=== PATIENT | male | born 1950 | race Caucasian/White ===

== ENCOUNTER 2018-04-28 14:03 | Inpatient (IN) | payer MEDICARE ==
[2018-04-28 15:08] LABS: ABS Basophils 0 10^3/ul (0-0.2); ABS Eosinophils 0.1 10^3/ul (0-0.6); ABS Lymphocytes 1.4 10^3/ul (1.0-4.8); ABS Monocytes 0.6 10^3/ul (0-0.8); ABS Neutrophils 4.8 10^3/ul (1.5-7.7); ABS Nucleated RBC 0 10^3/ul; Eosinophil % 2.1 % (0-6); Hematocrit 37 % (42-52); Hemoglobin 12.9 g/dl (14.0-18.0); Lymphocyte % 19.6 % (25-47); Mean Corpuscular HGB Conc 35 g/dl (31-36); Mean Corpuscular Hemoglobin 30 pg (27-31); Mean Corpuscular Volume 87 fL (80-94); Mean Platelet Volume 8.1 um3 (7.4-10.4); Nucleated Red Blood Cells % 0; Platelet Count 163 10^3/ul (150-450); Red Blood Count 4.25 10^6/ul (4.00-5.40); Red Cell Distribution Width 14 % (10.5-15)
[2018-04-28 15:32] LABS: EGFR Non-African American 53.8 (>60)
--- NOTE | 2018-04-28 17:01 | ED ---
Lower Extremity - HPI Summary HPI Summary: This pt is a 67 y/o male [place] [facility] [place] Dr. Romeo c/o increased swelling of left leg for the past 2 weeks. He notes wound on left second toe that his noticed 3 weeks ago. Pt saw Dr. Ena Romeo for the first time 1 week ago at the wound clinic for his left second toe. Pt had a culture done that resulted negative. Pt notes he has had increased swelling and redness of his left leg. Last night he states he had chills but his temperature was 98.4F. Denies chest pain, SOB, nausea, vomiting, abd pain, headache, dizziness, urinary symptoms. Pt had completed a course of "clavamox" prior to seeing Dr. 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 Pt states he has been dressing his wound with bandaids every day. PMHx includes diabetes, neuropathy in LE. Pt is on Lantus and his last dose was this morning. He last ate breakfast this morning. Pt notes his glucose this morning was 212. He states eating and drinking sporadically. His PCP is Dr. Ajay Taveras. He is not on anticoagulants. Adverse reaction to Levaquin (reaction is nausea). - History of Current Complaint Chief Complaint: EDExtremityLower Stated Complaint: LT FOOT SWELLING Time Seen by Provider: 04/28/18 15:59 Hx Obtained From: Patient, Other: - Dr Romeo by phone Mechanism Of Injury: Other - no trauma Onset of Pain: Days Onset/Duration: Weeks Severity Initially: Moderate Severity Currently: Mild Pain Intensity: 3 Pain Scale Used: 0-10 Numeric Timing: Constant, Lasting Weeks Location: Is Discrete @ - left second toe Character Of Pain: Unable To Describe - minimal, pt has DM neuropathy Associated Signs And Symptoms: Positive: Swelling, Redness, Other - POS: chills. NEG: nasuea, vomiting, abd pain, headache, urinary symptoms. Negative: Fever, Dizziness, Abdominal Pain, Knee Pain Aggravating Factor(s): Nothing Alleviating Factor(s): Nothing Able to Bear Weight: Yes Related History: Other - DM neuropathy - Allergies/Home Medications Allergies/Adverse Reactions: Allergies Allergy/AdvReac Type Severity Reaction Status Date / Time levofloxacin Allergy GI Upset Verified 04/28/18 17:22 BEES Allergy Difficulty Uncoded 04/28/18 17:22 Breathing Home Medications: Home Medications Cholecalciferol (Vitamin D3) [Vitamin D3] 2,000 unit PO DAILY 04/28/18 [History Confirmed 04/28/18] Cyclosporine 0.05% OPHTH (NF) [Restasis 0.05% OPHTH] 1 drop BOTH EYES BID [History Confirmed 04/28/18] Turmeric Root Extract [Turmeric] 1,000 mg PO DAILY 04/28/18 [History Confirmed 04/28/18] Ubidecarenone [Coenzyme Q-10] 30 mg PO BEDTIME 04/28/18 [History Confirmed 04/28] prednisoLONE 1% OPHTH.SUSP* [Pred Forte 1%*] 1 drop .SEE ORDER QID 04/28/18 [ History Confirmed 04/28/18] PMH/Surg Hx/FS Hx/Imm Hx Previously Healthy: No Endocrine/Hematology History: Reports: Hx Diabetes, Hx Thyroid Disease, Other Endocrine/Hematological Disorders - Lyme disease Cardiovascular History: Reports: Hx Peripheral Vascular Disease - BLE venous staisis Denies: Hx Hypertension, Hx Pacemaker/ICD Respiratory History: Denies: Hx Asthma History: Denies: Hx Dialysis, Hx Renal Disease Sensory History: Reports: Hx Contacts or Glasses, Hx Hearing Aid - BILATERAL Opthamlomology History: Reports: Hx Contacts or Glasses Neurological History: Reports: Hx Peripheral Neuropathy, Other Neuro Impairments /Disorders - Vertigo, Psychiatric History: Reports: Hx Depression Denies: Hx Panic Disorder - Surgical History Surgery Procedure, Year, and Place: ACHILLES - Lt REPAIR ;. BILATERAL Saphenous VARICOSE VEIN - LASER ;. GALLBLADDER REMOVED ;. Tonsillectomy - Immunization History Date of Tetanus Vaccine: PT STATES UNSURE Infectious Disease History: No Infectious Disease History: Denies: Traveled Outside the [place] in Last 30 Days - Family History Family History: Father with polycythemia. Mother with no blood clots. - Social History Occupation: Employed Full-time - social science research assistant Alcohol Use: Daily Alcohol Amount: 1 glass wine/day Substance Use Type: Reports: None Smoking Status (MU): Former Smoker Type: Cigarettes Review of Systems Positive: Chills - yesterday. Negative: Fever Negative: Chest Pain Negative: Shortness Of Breath Negative: Abdominal Pain, Vomiting, Nausea Genitourinary: Negative Positive: no symptoms reported Positive: Edema - on left leg Skin: Other - left second toe wound Neurological: Other - NEG: dizziness Negative: Headache Psychological: Normal All Other Systems Reviewed And Are Negative: Yes Physical Exam - Summary Physical Exam Summary: Appearance: Well-appearing, moderate pain distress, well-nourished Skin: Warm, color reflects adequate perfusion, dry, left second toe wound ventral surface DIP (as below) Head: Normal Head/Face inspection, atraumatic Eyes: Conjunctiva clear ENT: Normal inspection Neck: Supple, no nodes, no JVD Respiratory: Lungs clear, normal breath sounds, no respiratory distress Cardio: RRR, No murmur, pulses normal, brisk capillary refill Abdomen: Soft, nontender Bowel sounds: Present Musculoskeletal: Strength Intact/ROM intact, no calf tenderness. LLE: 0.5 cm open area of the inferior surface of left second toe DIP. Fungal appearing toe nails. Diffuse edema from the foot to the knee. Brawny changes of anterior tibia bilaterally. Scattered excoriations bilaterally. Great dorsalis pedis pulses. Good posterior tibial pulses. Decreased sensation on bilateral lower extremity, left>right. Psychological: Normal Neuro: Alert, muscle tone normal, no focal deficit Triage Information Reviewed: Yes Vital Signs On Initial Exam: Initial Vitals Temp Pulse Resp BP Pulse Ox 97.0 F 81 20 147/91 98 04/28/18 14:07 04/28/18 14:07 04/28/18 14:07 04/28/18 14:07 04/28/18 14:07 Vital Signs Reviewed: Yes Diagnostics - Vital Signs Vital Signs Temp Pulse Resp BP Pulse Ox 04/28/18 14:07 97.0 F 81 20 147/91 98 - Laboratory Lab Results: Lab Results 04/28/18 04/28/18 04/28/18 Range/Units 14:59 14:59 14:59 WBC 7.0 (3.5-10.8) 10^3/ul RBC 4.25 (4.00-5.40) 10^6/ul Hgb 12.9 L (14.0-18.0) g/dl Hct 37 L (42-52) % MCV 87 (80-94) fL MCH 30 (27-31) pg MCHC 35 (31-36) g/dl RDW 14 (10.5-15) % Plt Count 163 (150-450) 10^3/ul MPV 8.1 (7.4-10.4) um3 Neut % (Auto) 69.2 (38-83) % Lymph % (Auto) 19.6 L (25-47) % Green % (Auto) 8.7 H (0-7) % Eos % (Auto) 2.1 (0-6) % Baso % (Auto) 0.4 (0-2) % Absolute Neuts (auto) 4.8 (1.5-7.7) 10^3/ul Absolute Lymphs (auto) 1.4 (1.0-4.8) 10^3/ul Absolute Monos (auto) 0.6 (0-0.8) 10^3/ul Absolute Eos (auto) 0.1 (0-0.6) 10^3/ul Absolute Basos (auto) 0 (0-0.2) 10^3/ul Absolute Nucleated RBC 0 10^3/ul Nucleated RBC % 0 ESR Pending Sodium 138 (135-145) mmol/L Potassium 4.1 (3.5-5.0) mmol/L Chloride 104 (101-111) mmol/L Carbon Dioxide 28 (22-32) mmol/L Anion Gap 6 (2-11) mmol/L BUN 31 H (6-24) mg/dL Creatinine 1.32 H (0.67-1.17) mg/dL Est GFR ( Amer) 65.1 (>60) Est GFR (Non-Af Amer) 53.8 (>60) BUN/Creatinine Ratio 23.5 H (8-20) Glucose 169 H (70-100) mg/dL Lactic Acid 0.7 (0.5-2.0) mmol/L Calcium 9.5 (8.6-10.3) mg/dL Total Bilirubin 1.00 (0.2-1.0) mg/dL AST 20 (13-39) U/L ALT 21 (7-52) U/L Alkaline Phosphatase 92 (34-104) U/L C-Reactive Protein 24.71 H (<8.01) mg/L Total Protein 7.1 (6.4-8.9) g/dL Albumin 4.1 (3.2-5.2) g/dL Globulin 3.0 (2-4) g/dL Albumin/Globulin Ratio 1.4 (1-3) Result Diagrams: 05/02/18 06:38 05/02/18 06:38 Lab Statement: Any lab studies that have been ordered have been reviewed, and results considered in the medical decision making process. - CT Left lower extremity CT CT Interpretation: Positive (See Comments) - IMPRESSION: 1. There is osteopenia with probable erosion of the tuft of the distal phalanx of the second digit with associated soft tissue irregularity suggestive of osteomyelitis. 2. 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 3. Subcutaneous edema. Dr. Hickman has reviewed this report. CT Interpretation Completed By: Radiologist - Additional Comments Diagnostic Additional Comments: Venous Doppler Study, Left lower extremity as read by radiologist IMPRESSION: No left lower extremity deep vein thrombosis. Dr. Hickman has reviewed this radiology report. Re-Evaluation - Re-Evaluation First Eval Re-Evaluation Time: 17:43 Comment: I reviewed CT results of osteomyelitis of left second toe with the pt. Second Eval Re-Evaluation Time: 18:20 Comment: I discussed admission plan with the pt. He understands and agrees. Lower Extremity Course/Dx - Course Course Of Treatment: Pt medications reviewed this visit. Allergies noted. Elevated blood pressure is noted. Pt is a 67 y/o male, with hx of diabetes and neuropathy, presenting to the ED referred by Dr. Romeo c/o increased swelling of left leg for the past 2 weeks and wound on left second toe worsening. US of left lower extremity is negative for DVT. CT of left lower extremity shows osteomyelitis of left second toe. Will consult orthopedics. I discussed pt care with Dr. Lindsay, orthopedist, who recommends admission to the hospitalist for AN, MRI of foot, broad spectrum antibiotics, and possible surgery. I discussed with Dr. Og, hospitalist, who accepted the pt for admission. - Diagnoses Differential Diagnosis/HQI/PQRI: Positive: Cellulitis, DVT, Osteomyelitis Provider Diagnoses: Acute osteomyelitis of toe of left foot - Physician Notifications Discussed Care Of Patient With: Avery Lindsay Time Discussed With Above Provider: 18:09 Instructed by Provider To: Other - I discussed pt care with Dr. Lindsay, orthopedist, who recommends admission to the hospitalist for AN, MRI of foot, broad spectrum antibiotics, and possible surgery. [18:17] I discussed with Dr. Og, hospitalist, who accepted the pt for admission. Discharge - Sign-Out/Discharge Documenting (check all that apply): Patient Departure - Admit to [facility] [place] - Discharge Plan Condition: Improved Disposition: ADMITTED TO [facility] - Billing Disposition and Condition Condition: IMPROVED Disposition: Admitted to [facility] - Attestation Statements Document Initiated by Haleyibe: Yes Documenting Scribe: Mandy Yañez Provider For Whom Sivane is Documenting (Include Credential): Dr. Mecca Hcikman MD Scribe Attestation: Mandy Ty scribed for Dr. Mecca Hickman MD on 05/05/18 at 1957. Scribe Documentation Reviewed: Yes Provider Attestation: The documentation as recorded by the Mandy prado accurately reflects the service I personally performed and the decisions made by me, Dr. Mecca Hickman MD
--- NOTE | 2018-04-28 17:05 | RAD ---
HISTORY: evaluate wound left second toe, DM,wound clinic pt COMPARISONS: April 23, 2018 TECHNIQUE: Multiple contiguous axial CT images are obtained of the left lower extremity , with coronal and sagittal multiplanar reconstructions, without intravenous contrast administration. FINDINGS: BONE DENSITY: Normal. BONES: There is osteopenia with probable erosion of the tuft of the distal phalanx of the second digit. JOINTS: There is advanced osteoarthritis of the first, second, and third tarsometatarsal articulations. MUSCULATURE: Unremarkable ALIGNMENT: There is no dislocation. SOFT TISSUES: There is subcutaneous edema of the midfoot and ankle. There is soft tissue irregularity of the distal second digit consistent with the history of wound. There is no loculated fluid collection to suggest abscess. OTHER FINDINGS: None. IMPRESSION: 1. THERE IS OSTEOPENIA WITH PROBABLE EROSION OF THE TUFT OF THE DISTAL PHALANX OF THE SECOND DIGIT WITH ASSOCIATED SOFT TISSUE IRREGULARITY SUGGESTIVE OF OSTEOMYELITIS. 2. ADVANCED OSTEOARTHRITIS OF THE MIDFOOT CONSISTENT WITH NEUROPATHIC JOINT. 3. SUBCUTANEOUS EDEMA.
--- NOTE | 2018-04-28 17:08 | RAD ---
HISTORY: swelling, wound left second toe COMPARISONS: None relevant TECHNIQUE: Multiple transverse and longitudinal ultrasound images were obtained of the left lower extremity from the level of the common femoral vein inferiorly through to the infrapopliteal veins using grayscale, color Doppler, and spectral Doppler imaging with and without compression and with augmentation. Comparison images were obtained of the contralateral common femoral vein. FINDINGS: VEINS: The venous system of the left lower extremity is compressible throughout its course, with normal flow on color Doppler imaging and normal response to augmentation on spectral Doppler imaging. SOFT TISSUES: There is diffuse subcutaneous edema along the calf. OTHER FINDINGS: None. IMPRESSION: NO LEFT LOWER EXTREMITY DEEP VEIN THROMBOSIS
[2018-04-28] MEDS ORDERED: NS 0.9% 1000 ML* 1,000 ML IV ONE (18:16)
[2018-04-28] MEDS ORDERED: Piperacillin/Tazobac ADVAN(*) 3.375 GM in NS 0.9% 100 ML* 100 ML IVPB ONE (18:19)
[2018-04-28] MEDS ORDERED: Al Hydrox/Mg Hydrox/Simet LIQ* 30 ML UDC PO PRN (18:52)
[2018-04-28] MEDS ORDERED: Vancomycin(*) 1,500 MG in NS 0.9% 250 ML* 250 ML IVPB ONE (19:23)
[2018-04-28] MEDS ORDERED: Vancomycin per Pharmacy* NOTE FOLLOW UP PRN (19:31)
[2018-04-28] MEDS ORDERED: Dextrose 50% Syringe 50 ML* 25 GM/50 ML SYRINGE IV PUSH PRN (19:36)
[2018-04-28] MEDS ORDERED: Zosyn per Pharmacy* NOTE FOLLOW UP SCH (20:00)
[2018-04-28] MEDS: Insulin LISPRO* 1 UNITS UNIT SUBCUT SCH (21:34)
[2018-04-28] MEDS: Heparin VIAL(*) 5000 UNITS/ML VIAL (FIVE THOUSAND) SUBCUT SCH (21:45)
--- NOTE | 2018-04-28 22:17 | RAD ---
EXAM: MR Left Lower Extremity Without Intravenous Contrast, Foot CLINICAL HISTORY: 67 years old, male; Pain; Toes; Left; Patient HX: Pt has a wound on his second left toe. Also has swelling and redness that radiates up to his knee. ? Spesis; Additional info: 2nd digit TECHNIQUE: Multiplanar magnetic resonance images of the left foot without intravenous contrast. COMPARISON: [place] L FOOT LEFT 3+ VWS 04/23/2018 1:14 PM FINDINGS: Bones/joints: Soft tissue wound distal tip of the second toe with some cellulitis. Difficult to assess for abscess without contrast. There is abnormal marrow signal in the distal phalanx of the toe, increased on STIR and slightly decreased on T1 suggesting osteomyelitis without bony destruction. 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 It is difficult to assess for possibility of active infection at this level. Soft tissues: Extensive infiltrative changes in the subcutaneous tissues most pronounced along the dorsum of the foot and around the ankle. Some of this may be passive edema and some may be cellulitis. IMPRESSION: 1. Soft tissue wound distal tip of the second toe with surrounding cellulitis. Difficult to assess for abscess without contrast. There is abnormal marrow signal in the distal phalanx of the toe, increased on STIR and slightly decreased on T1 suggesting osteomyelitis without bony destruction. 2. 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 It is difficult to assess for possibility of active infection at this level. 3. Extensive infiltrative changes in the subcutaneous tissues most pronounced along the dorsum of the foot and around the ankle. Some of this may be passive edema and some may be cellulitis.
--- NOTE | 2018-04-28 22:32 | HP ---
CC: Dr. Taveras * HISTORY AND PHYSICAL: DATE OF ADMISSION: 04/28/18 TIME OF ADMISSION: 7:30 p.m. CHIEF COMPLAINT: Sent from wound clinic. HISTORY OF PRESENT ILLNESS: This is a 67-year-old man with history of poorly controlled diabetes who has been following in the wound clinic one time for a left second digit ulcer. He was in the wound clinic today and there was concern for osteomyelitis, so he was sent to the emergency department. Mr. Palmer denies any pain in his feet and endorses peripheral neuropathy that he has had for many years. He did not notice the ulcer on his foot but his did and urged him to go see a physician. He denies any recent illness or fevers and has no complaints at this time. He is active, he golfs weekly and walks all the holes when he is golfing. He never gets chest pain or shortness of breath and never gets pain in his legs when he walks. PAST MEDICAL HISTORY: 1. Type 2 diabetes. 2. Depression. 3. Hypothyroidism. 4. History of cellulitis. PAST SURGICAL HISTORY: 1. Achillis tendon repair. 2. Cholecystectomy. HOME MEDICATIONS: 1. He takes Lantus 40 units in the evening and 35 units in the morning. 2. Duloxetine 30 mg b.i.d. Remainder of the med rec has not yet been completed and needs to be done in the morning. 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 He smoked for 10 years 3 packs per day and quit in 1973. REVIEW OF SYSTEMS: He denies fevers, chills, nausea, vomiting, constipation, diarrhea, headaches, orthopnea, weight gain or weight loss. Remainder of 14- point review of systems is negative. PHYSICAL EXAMINATION GENERAL: Alert, comfortable man in no acute distress. VITAL SIGNS: Temperature 97.0, heart rate 81, respiratory rate 20, pulse ox 98 % on room air, blood pressure 147/91. HEENT: Pupils equal, round, and reactive to light. No nystagmus. Oral mucosa is moist. NECK: No JVP. No cervical adenopathy. LUNGS: Clear bilaterally. CHEST: Regular rate and rhythm. No murmurs. PMI is nondisplaced. ABDOMEN: Obese, nontender, nondistended with no guarding or rebound. EXTREMITIES: Diffuse venous stasis changes are noted. A 1 cm ulcer is present on the plantar surface of the left second digit with no drainage or surrounding erythema. LABORATORY DATA: White blood cell 7.0, hemoglobin 12.9, platelets 163, 69% neutrophils. Sodium 138, potassium 4.1, chloride 104, bicarb 28, BUN 31, creatinine 1.31, glucose 169, lactic acid 0.7. CRP 24.7. Lower extremity CT: 1. There is osteopenia with probable erosion of the tuft of the distal phalanx of the second digit with associated soft tissue irregularity suggestive of osteomyelitis. 2. 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 3. Subcutaneous edema. ASSESSMENT AND PLAN: This is a 67-year-old male with poorly controlled diabetes who presented to the emergency department today as a referral from the wound clinic with a worsening left second digit ulcer. 1. Osteomyelitis of the left second digit: Dr. Hickman has spoken with Orthopedic surgery and they recommend ABIs and MRI which I am ordering now. I am starting him on vancomycin and Peptazol for osteomyelitis. He is not septic at this time. I suspect he will need surgical evaluation and I will discuss this with orthopedic surgery in the morning. 2. Poorly controlled type 2 diabetes: An A1c is pending. I am continuing on his home dose of Lantus at 40 units in the evening and 35 units in the morning. I am holding his pioglitazone. Of note, he does report some recent low blood sugars recently, but only when he is exercising. 3. Depression: Continue duloxetine. 4. Hypothyroidism: Continue home Synthroid. 5. Med rec: His current medications have not been reconciled and this needs to be done in the morning. 6. DVT prophylaxis: Heparin subcutaneously. [id number]/[facility] #: [id number] [facility]
[2018-04-29] MEDS: ZOSYN 3.375 GM Q8H per EXTENDED INFUSION IVPB SCH ×6 (00:05→17:24)
--- NOTE | 2018-04-29 04:15 | PN ---
Progress Note - Progress Note Date of Service: 04/29/18 Note: Due to persistently low glucose, evening lantus was held. Paged for glucose > 300. Will give 12 units and give his morning lantus now.
[2018-04-29] MEDS ORDERED: Insulin GLARGINE(*) 1 UNITS UNIT ONE (04:18)
[2018-04-29] MEDS: Insulin LISPRO* 1 UNITS UNIT SUBCUT SCH ×5 (04:19→21:45)
[2018-04-29] MEDS: Insulin GLARGINE(*) 1 UNITS UNIT SUBCUT SCH ×3 (04:20→17:24)
[2018-04-29] MEDS: Vancomycin(*) 1,000 MG in NS 0.9% 250 ML* 250 ML IVPB SCH ×3 (05:33→21:41)
[2018-04-29] MEDS: Heparin VIAL(*) 5000 UNITS/ML VIAL (FIVE THOUSAND) SUBCUT SCH ×3 (05:33→21:45)
[2018-04-29 07:00] LABS: ABS Basophils 0 10^3/ul (0-0.2); ABS Eosinophils 0.1 10^3/ul (0-0.6); ABS Lymphocytes 1.5 10^3/ul (1.0-4.8); ABS Monocytes 0.6 10^3/ul (0-0.8); ABS Nucleated RBC 0 10^3/ul; Eosinophil % 2.3 % (0-6); Hematocrit 36 % (42-52); Hemoglobin 12.8 g/dl (14.0-18.0); Lymphocyte % 24.4 % (25-47); Mean Corpuscular HGB Conc 35 g/dl (31-36); Mean Corpuscular Hemoglobin 31 pg (27-31); Mean Corpuscular Volume 88 fL (80-94); Mean Platelet Volume 8.6 um3 (7.4-10.4); Nucleated Red Blood Cells % 0.1; Platelet Count 156 10^3/ul (150-450); Red Blood Count 4.12 10^6/ul (4.00-5.40); Red Cell Distribution Width 14 % (10.5-15); White Blood Count 6.3 10^3/ul (3.5-10.8)
[2018-04-29 07:23] LABS: EGFR Non-African American 57.8 (>60)
--- NOTE | 2018-04-29 10:03 | PN ---
Subjective Date of Service: 04/29/18 Interval History: Hypoglycemia overnight--he was aware of it and felt weak. Evening lantus was held, then he ate, then BG was >300, so a reduced dose of lantus was given. He feels fine this morning. No pain, no fevers. Good appetite, no nausea, diarrhea, constipation, headache. Objective Active Medications: Acetaminophen (Tylenol Tab*) 650 mg PO Q4H PRN PRN Reason: FEVER/PAIN Al Hydrox/Mg Hydrox/Simethicone (Maalox Plus*) 30 ml PO Q6H PRN PRN Reason: INDIGESTION Dextrose (D50w Syringe 50 Ml*) 12.5 gm IV PUSH .FOR FS < 60 - SS PRN PRN Reason: FS < 60 Heparin Sodium (Porcine) (Heparin Vial(*)) 5,000 units SUBCUT Q8HR [facility] Last Admin: 04/29/18 05:33 Dose: 5,000 units Vancomycin HCl 1,000 mg/ (Sodium Chloride) 250 mls @ 166.667 mls/hr IVPB Q8H [facility]; Protocol Last Admin: 04/29/18 05:33 Dose: 166.667 mls/hr Piperacillin Sod/Tazobactam (Sod 3.375 gm/ Sodium Chloride) 100 mls @ 25 mls/ hr IVPB Q8H [facility] Last Admin: 04/29/18 07:41 Dose: 25 mls/hr Insulin Glargine (Lantus(*)) 40 units SUBCUT QPM [facility] Insulin Glargine (Lantus(*)) 35 units SUBCUT Q24H [facility] Last Admin: 04/29/18 06:47 Dose: Not Given Insulin Human Lispro (Humalog*) 0 units SUBCUT ACHS [facility]; Protocol Last Admin: 04/29/18 08:44 Dose: 2 unit Pharmacy Consult (Zosyn Per Pharmacy*) 1 note FOLLOW UP .ZOSYN PER PHARMACY [facility] Pharmacy Consult (Vancomycin Per Pharmacy*) 1 note FOLLOW UP . PRN PRN Reason: PER PROTOCOL Vital Signs - 8 hr 04/29/18 04/29/18 03:55 07:39 Temperature 98.2 F 98.1 F Pulse Rate 75 73 Respiratory 18 19 Rate Blood Pressure 152/81 144/82 (mmHg) O2 Sat by Pulse 96 97 Oximetry Oxygen Devices in Use Now: None Appearance: alert, reading the newspaper in bed, comfortable Eyes: No Scleral Icterus Ears/Nose/Mouth/Throat: NL Teeth, Lips, Gums Neck: NL Appearance and Movements; NL JVP Respiratory: Symmetrical Chest Expansion and Respiratory Effort, Clear to Auscultation Cardiovascular: NL Sounds; No Murmurs; No JVD, RRR Abdominal: NL Sounds; No Tenderness; No Distention Lymphatic: No Cervical Adenopathy Extremities: - - severe chronic venous stasis changes, varicose veins, left second digit with a 0.5cm ulceration, no drainage or surrounding erythema Result Diagrams: 04/29/18 06:38 04/29/18 06:38 Additional Lab and Data: Lab Results 04/28/18 04/28/18 04/28/18 Range/Units 14:59 14:59 14:59 WBC 7.0 (3.5-10.8) 10^3/ul RBC 4.25 (4.00-5.40) 10^6/ul Hgb 12.9 L (14.0-18.0) g/dl Hct 37 L (42-52) % MCV 87 (80-94) fL MCH 30 (27-31) pg MCHC 35 (31-36) g/dl RDW 14 (10.5-15) % Plt Count 163 (150-450) 10^3/ul MPV 8.1 (7.4-10.4) um3 Neut % (Auto) 69.2 (38-83) % Lymph % (Auto) 19.6 L (25-47) % [place] % (Auto) 8.7 H (0-7) % Eos % (Auto) 2.1 (0-6) % Baso % (Auto) 0.4 (0-2) % Absolute Neuts (auto) 4.8 (1.5-7.7) 10^3/ul Absolute Lymphs (auto) 1.4 (1.0-4.8) 10^3/ul Absolute Monos (auto) 0.6 (0-0.8) 10^3/ul Absolute Eos (auto) 0.1 (0-0.6) 10^3/ul Absolute Basos (auto) 0 (0-0.2) 10^3/ul Absolute Nucleated RBC 0 10^3/ul Nucleated RBC % 0 ESR Pending Sodium 138 (135-145) mmol/L Potassium 4.1 (3.5-5.0) mmol/L Chloride 104 (101-111) mmol/L Carbon Dioxide 28 (22-32) mmol/L Anion Gap 6 (2-11) mmol/L BUN 31 H (6-24) mg/dL Creatinine 1.32 H (0.67-1.17) mg/dL Est GFR ( Amer) 65.1 (>60) Est GFR (Non-Af Amer) 53.8 (>60) BUN/Creatinine Ratio 23.5 H (8-20) Glucose 169 H (70-100) mg/dL Lactic Acid 0.7 (0.5-2.0) mmol/L Calcium 9.5 (8.6-10.3) mg/dL Total Bilirubin 1.00 (0.2-1.0) mg/dL AST 20 (13-39) U/L ALT 21 (7-52) U/L Alkaline Phosphatase 92 (34-104) U/L C-Reactive Protein 24.71 H (<8.01) mg/L Total Protein 7.1 (6.4-8.9) g/dL Albumin 4.1 (3.2-5.2) g/dL Globulin 3.0 (2-4) g/dL Albumin/Globulin Ratio 1.4 (1-3) Assess/Plan/Problems-Billing Assessment: 67 year old man with history of poorly controlled diabetes x 20 years presented from the wound clinic with a worsening left 2nd digit ulcer, found to have osteomyelitis - Patient Problems (1) Osteomyelitis Current Visit: Yes Status: Acute Code(s): M86.9 - OSTEOMYELITIS, UNSPECIFIED SNOMED Code(s): 68709889 Comment: seen on CT, confirmed with MRI repeat ABIs today no evidence of sepsis suspect polymicrobial infection--treating with vanc and pip/tazo he declines an ID consult he has a good understanding of the pathogenesis of osteomyelitis and does not want to be on antibiotics for long periods of time and prefers amputation ortho following; he has good functional capacity--will do formal risk strat when OR date is scheduled (2) CKD stage 2 due to type 2 diabetes mellitus Current Visit: No Status: Acute Code(s): E11.22 - TYPE 2 DIABETES MELLITUS W DIABETIC CHRONIC KIDNEY DISEASE; N18.2 - CHRONIC KIDNEY DISEASE, STAGE 2 (MILD ) SNOMED Code(s): 976769648254 Comment: creat at baseline (3) DVT prophylaxis Current Visit: No Status: Acute Priority: Medium Code(s): FFE5614 - SNOMED Code(s): 455151881 Comment: heparin sc (4) Hypothyroidism (acquired) Current Visit: No Status: Acute Code(s): E03.9 - HYPOTHYROIDISM, UNSPECIFIED SNOMED Code(s): 399430247 Comment: cont Levothyroxine (5) DM type 2 (diabetes mellitus, type 2) Current Visit: No Status: Chronic Priority: Medium Comment: I received a med rec from dl and will update his orders hypoglycemia last night likely from having taken his am lantus and not eating all day (6) Depression Current Visit: Yes Status: Acute Code(s): F32.9 - MAJOR DEPRESSIVE DISORDER , SINGLE EPISODE, UNSPECIFIED SNOMED Code(s): 69776200 Comment: continue duloxetine and bupropion
--- NOTE | 2018-04-29 10:43 | RAD ---
INDICATION: Left foot ulcer. COMPARISON: Comparison is made with a prior study from February 01, 2017. TECHNIQUE: Bilateral ankle brachial indices were measured and Doppler tracings were obtained at the ankle of the dorsalis pedis and posterior tibial arteries. FINDINGS: The ankle brachial index on the right was 1.23 and on the left was 1.20. The ankle brachial indices on the prior study were 1.13 and 1.17 respectively. There is triphasic flow within the right posterior tibial artery and triphasic flow within the right dorsalis pedis artery. There is triphasic flow within the left posterior tibial artery and triphasic flow within the left dorsalis pedis artery. The toe brachial index was 0.79 on the right and 0.75 on the left. IMPRESSION: NORMAL ANKLE BRACHIAL INDICES AND TRIPHASIC FLOW AT BOTH ANKLES.
--- NOTE | 2018-04-29 16:49 | CONSULT ---
Consult Consult: - HPI Summary HPI Summary: This pt is a 67 y/o male seen on the floor today lying in bed. Pt presented to the ER with increased swelling of left leg for the past 2 months. He notes wound on left second toe that his noticed 1 month ago. Pt saw Dr. Ena Romeo for the first time 1 week ago at the wound clinic for his left second toe. Pt had a culture done that resulted negative. Pt notes he has had increased swelling and redness of his left leg. Last night he states he had chills but his temperature was 98.4F. Denies chest pain, SOB, nausea, vomiting, abd pain, headache, dizziness, urinary symptoms. Pt states he has been dressing his wound with bandaids every day. PMHx includes diabetes, neuropathy in LE. Pt is on Lantus and his last dose was this morning. He last ate breakfast this morning. Pt notes his glucose this morning was 212. He states eating and drinking sporadically. His PCP is Dr. Ajay Taveras. He is not on anticoagulants. Adverse reaction to Levaquin (reaction is nausea). Allergies Allergy/AdvReac Type Severity Reaction Status Date / Time levofloxacin Allergy GI Upset Verified 04/28/18 17:22 BEES Allergy Difficulty Uncoded 04/28/18 17:22 Breathing PMHx Endocrine/Hematology History: Reports: Hx Diabetes, Hx Thyroid Disease, Other Endocrine/Hematological Disorders - Lyme disease Cardiovascular History: Reports: Hx Peripheral Vascular Disease - BLE venous staisis Denies: Hx Hypertension, Hx Pacemaker/ICD Respiratory History: Denies: Hx Asthma History: Denies: Hx Dialysis, Hx Renal Disease Sensory History: Reports: Hx Contacts or Glasses, Hx Hearing Aid - BILATERAL Opthamlomology History: Reports: Hx Contacts or Glasses Neurological History: Reports: Other Neuro Impairments/Disorders - Virtigo Psychiatric History: Reports: Hx Depression Denies: Hx Panic Disorder PSHx ACHILLES - Lt REPAIR BILATERAL Saphenous VARICOSE VEIN - LASER GALLBLADDER REMOVED Tonsillectomy Family History: Father with polycythemia. Mother with no blood clots. Social Hx Alcohol Use: Daily Alcohol Amount: 1 glass wine/day Substance Use Type: Reports: None Smoking Status (MU): Former Smoker Type: Cigarettes ROS: Positive: Chills - yesterday. Negative: Fever Negative: Chest Pain Negative: Shortness Of Breath Negative: Abdominal Pain, Vomiting, Nausea Genitourinary: Negative Positive: no symptoms reported Positive: Edema - on left leg Skin: Other - left second toe wound Neurological: Other - NEG: dizziness Negative: Headache All Other Systems Reviewed And Are Negative: Yes Physical Exam: Vital Signs Temp 98.0 F 04/29/18 11:31 Pulse 74 04/29/18 11:31 Resp 16 04/29/18 11:31 BP 132/71 04/29/18 11:31 Pulse Ox 97 04/29/18 11:31 Intake & Output 04/28/18 04/29/18 04/29/18 18:59 06:59 18:59 Intake Total 1760 1010 Balance 1760 1010 Weight 300 lb 304 lb Intake: IV Fluids 1040 NS (0.9%) 1040 IVPB 430 ABX - VANCOMYCIN 285 ABX - ZOSYN 145 Oral 290 1010 Other: # Bowel Movements 0 2 # Voids 0 5 Appearance: Well-appearing, moderate pain distress, well-nourished Skin: Warm, color reflects adequate perfusion, dry Head: Normal Head/Face inspection, atraumatic Eyes: Conjunctiva clear ENT: Normal inspection Neck: Supple, no nodes, no JVD Respiratory: Lungs clear, normal breath sounds, no respiratory distress Cardio: RRR, No murmur, pulses normal, brisk capillary refill Abdomen: Soft, nontender Bowel sounds: Present Musculoskeletal: Inspection of the lower extremity reveals severe discoloration of the bilateral lower extremities. There is also a circular wound present on the 2nd digit of the left foot at the distal tip. Palpation reveals 2+ pitting edema. Strength Intact/ROM intact, no calf tenderness. Fungal appearing toe nails. Scattered excoriations bilaterally. 2+ dorsalis pedis pulses. 2+ posterior tibial pulses. Decreased sensation on bilateral lower extremity, left> right. Psychological: Normal Neuro: Alert, muscle tone normal, no focal deficit Imaging: Left lower extremity CT CT Interpretation: - 1. There is osteopenia with probable erosion of the tuft of the distal phalanx of the second digit with associated soft tissue irregularity suggestive of osteomyelitis. 2. 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 3. Subcutaneous edema. Dr. Hickman has reviewed this report. CT Interpretation Completed By: Radiologist Assessment: Left 2nd digit distal phalanx osteomyelitis Plan: 1. Discussed the options of non operative abx vs operative amputation of the 2nd distal phalanx. Pt expressed interest in surgical intervention. 2. ABIs to be obtained 3. Pt refused consult with Dr. Nickerson of ID for further abx management. Dr. Webster to see the pt in the am and discuss surgery and abx management.
[2018-04-29] MEDS: Ketorolac 0.5% OPHTH (NF) 0.5 % 5 ML BTL BOTH EYES SCH ×2 (17:25→21:45)
[2018-04-29] MEDS: prednisoLONE 1% OPHTH.SUSP* 5 ML OPHTH.SUSP SCH ×2 (17:25→21:59)
[2018-04-29] MEDS ORDERED: prednisoLONE 1% OPHTH.SUSP* 5 ML OPHTH.SUSP LEFT EYE SCH (21:42)
[2018-04-29] MEDS: prednisoLONE 1% OPHTH.SUSP* 5 ML OPHTH.SUSP LEFT EYE SCH (23:41)
[2018-04-30] MEDS: ZOSYN 3.375 GM Q8H per EXTENDED INFUSION IVPB SCH ×6 (00:20→17:31)
[2018-04-30] MEDS: Vancomycin(*) 1,000 MG in NS 0.9% 250 ML* 250 ML IVPB SCH ×3 (05:32→21:25)
[2018-04-30] MEDS: Heparin VIAL(*) 5000 UNITS/ML VIAL (FIVE THOUSAND) SUBCUT SCH ×3 (05:32→21:17)
[2018-04-30] MEDS ORDERED: Levothyroxine TAB* 100 MCG TAB PO SCH (06:00)
[2018-04-30] MEDS: Ketorolac 0.5% OPHTH (NF) 0.5 % 5 ML BTL BOTH EYES SCH ×4 (07:39→21:16)
[2018-04-30] MEDS: Insulin LISPRO* 1 UNITS UNIT SUBCUT SCH ×4 (07:49→21:24)
[2018-04-30] MEDS: prednisoLONE 1% OPHTH.SUSP* 5 ML OPHTH.SUSP LEFT EYE SCH ×4 (08:20→21:17)
[2018-04-30] MEDS: BuPROPion XL* 150 MG TAB.XL PO SCH (08:20)
[2018-04-30] MEDS: Insulin GLARGINE(*) 1 UNITS UNIT SUBCUT SCH ×2 (08:21→17:31)
--- NOTE | 2018-04-30 10:27 | CONSULT ---
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 He reports about one month of worsening ulcer, swelling and erythema at the left second toe. He does not recall a specific injury, but does have dense neuropathy from diabetes. He is admitted to the hospital and CT scan and MRI did show osteomyelitis, so I was consulted. He reports he has had generalized swelling in the foot for a couple of months. No pain. 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 This was treated by Dr. Pedroza. Review of Systems: Negative for fever, recent visual changes, difficulty swallowing, chest pain, shortness of breath, abdominal pain, hematuria, easy bruising, diffuse weakness or lack of coordination, and diffuse rash. Positive for neck and back pain, previous fracture, peripheral neuropathy, seasonal allergies, depression. PMH: Type 2 diabetes with peripheral neuropathy, Charcot neuroarthropathy of the foot, Thyroid problems, depression PSH: cholecystectomy, Achilles rupture repair, saphenous vein ablation Medications: Lantus, duloxetine, levothyroxin Allergies:levofloxacin SH:. He is a facilities maintenance supervisor. No smoking. 7-10 alcoholic drink per week. FH: Heart disease, thrombocytopenia. Physical Examination: Constitutional: General appearance is healthy and non-septic in no acute distress. Temp Pulse Resp BP Pulse Ox 97.7 F 75 16 142/80 98 04/30/18 07:15 04/30/18 07:15 04/30/18 07:15 04/30/18 07:15 04/30/18 07:15 Cardiovascular: Pulse examination demonstrates positive pedal pulses with brisk capillary refill. There are no varicosities. Heart with a regular rate and rhythm. Lung sounds clear bilaterally. Abdomen: Soft and nontender Lymphatic: No lymphadenopathy appreciated. Skin: Bilateral upper and lower extremity examination demonstrates no ulcerative lesions aside from those of the involved extremity detailed below, if present. Psychiatric / Neurological: Appropriate affect. Alert and oriented to person, place and time. There is no significant abnormality in coordination appreciated. Normoreflexive deep tendon reflex of the affected extremity. Musculoskeletal: Bilateral upper extremities and contralateral lower extremity show full range of motion with no evidence of instability and no tenderness with palpation and 5 /5 strength. There is no gross deformity. There is 5/5 motor strength and impaired light touch sensation. He has chronic venous stasis changes and swelling of his bilateral lower extremities The left foot is swollen, but not erythematous or tender. 0-30 ankle ROM, stable. He has swelling and very mild erythema of the left second toe. There is a 0.8 cm diameter ulcer on the tip of the toe. His bandage has a little bit of purulent drainage on it, but there is no active drainage on exam. Imaging: X-rays were obtained, and independently interpreted and show evidence of midfoot Charcot neuroarthropathy. His MRI and CT scan are consistent with distal phalanx osteomyelitis of the left second toe. ABIs were within normal limits. Labs: WBC 6.3 HCT 36 Platelets 156 Cr 1.24 ESR 36 CRP 24.7 Impression and Plan: Left second toe ulcer, infection, and distal phalanx osteomyelitis. He does also have Charcot neuroarthropathy in the midfoot. We discussed both nonoperative and operative treatment options at length. We discussed the risks/benefits and pros/cons of these options. We did discuss trying to salvage the toe. He was very adamant that he would prefer a second toe amputation to give him the best chance at clearing infection and not having a prolonged course. After this discussion, we came to the decision that we would move forward with surgery. The specific plan will be for A partial left second toe amputation tomorrow. For now, Infectious Disease consult and antibiotics as guided by Infectious Diseases, daily dressing changes. NPO at midnight for OR tomorrow. Appreciate medical clearance. I recommend chemical and mechanical DVT prophylaxis. Edwin Webster MD
[2018-04-30] MEDS: Levothyroxine TAB* 100 MCG TAB PO SCH (12:03)
--- NOTE | 2018-04-30 12:24 | PN ---
Subjective Date of Service: 04/30/18 Interval History: Mr. Palmer reports feeling well this morning. He has been up ambulating independently. Denies pain. He is aware of plan for amputation tomorrow and is in agreement. He is open to an ID consult, though he states he will not necessarily follow the recommendations. Good appetite. No N/V/D, but he does report flatus. Denies CP, SOB. Family History: Unchanged from Admission Social History: Unchanged from Admission Past Medical History: Unchanged from Admission Objective Active Medications: Acetaminophen (Tylenol Tab*) 650 mg PO Q4H PRN Al Hydrox/Mg Hydrox/Simethicone (Maalox Plus*) 30 ml PO Q6H PRN Bupropion HCl (Wellbutrin Xl *) 150 mg PO DAILY [facility] Dextrose (D50w Syringe 50 Ml*) 12.5 gm IV PUSH .FOR FS < 60 - SS PRN Famotidine (Pepcid Iv*) 20 mg IV ONCE ONE Heparin Sodium (Porcine) (Heparin Vial(*)) 5,000 units SUBCUT Q8HR [facility] Vancomycin HCl 1,000 mg/ (Sodium Chloride) 250 mls @ 166.667 mls/hr IVPB Q8H [facility]; Protocol Piperacillin Sod/Tazobactam (Sod 3.375 gm/ Sodium Chloride) 100 mls @ 25 mls/ hr IVPB Q8H [facility] Insulin Glargine (Lantus(*)) 40 units SUBCUT QPM [facility] Insulin Glargine (Lantus(*)) 35 units SUBCUT Q24H [facility] Insulin Human Lispro (Humalog*) 0 units SUBCUT ACHS [facility]; Protocol Ketorolac Tromethamine (Ketorolac 0.5% Ophth (Nf)) 1 drop BOTH EYES QID [facility] Levothyroxine Sodium (Synthroid Tab*) 200 mcg PO 0600 [facility] Prednisolone Acetate (Pred Forte 1%*) 1 drop LEFT EYE QID [facility] Vital Signs - 8 hr 04/30/18 07:15 Temperature 97.7 F Pulse Rate 75 Respiratory 16 Rate Blood Pressure 142/80 (mmHg) O2 Sat by Pulse 98 Oximetry Oxygen Devices in Use Now: None Appearance: Overweight male sitting in bed in no acute distress. Eyes: No Scleral Icterus, PERRLA Ears/Nose/Mouth/Throat: NL Teeth, Lips, Gums, Mucous Membranes Moist Neck: NL Appearance and Movements; NL JVP Respiratory: Symmetrical Chest Expansion and Respiratory Effort, Clear to Auscultation Cardiovascular: NL Sounds; No Murmurs; No JVD, RRR Abdominal: NL Sounds; No Tenderness; No Distention, No Hepatosplenomegaly Lymphatic: No Cervical Adenopathy Extremities: No Edema, - - Severe chronic venous statis and varicose veins. Ulceration to left 2nd digit. Neurological: Alert and Oriented x 3 Lines/Tubes/Other Access: Clean, Dry and Intact Peripheral IV Nutrition: Taking PO's Result Diagrams: 04/29/18 06:38 04/29/18 06:38 Assess/Plan/Problems-Billing Assessment: Mr. Palmer is a 67 year old man with history of poorly controlled diabetes x 20 years and CKD satge 2 presented from the wound clinic with a worsening left 2nd digit ulcer and was found to have osteomyelitis. - Patient Problems (1) Osteomyelitis Current Visit: Yes Status: Acute Priority: High Code(s): M86.9 - OSTEOMYELITIS, UNSPECIFIED SNOMED Code(s): 33083706 Comment: - Confirmed with MRI - Normal ABIs - Suspect polymicrobial infection, continue vanco and zosyn - Now agreeable to ID consult; has a good understanding of the pathogenesis, does not want to be on antibiotics for long periods of time and prefers amputation - Ortho following - According to the Revised Cardiac Risk Index, the patient has a score of 1 point indicating a 0.9% risk of a major cardiac event. The patient has a METS score of 7.99. EKG personally reviewed shows NSR with a rate of 78 bpm. He does not require any further cardiac workup at this time. The patient has been medically optimized for a toe amputation with Dr. Iqbal tomorrow. (2) DM type 2 (diabetes mellitus, type 2) Current Visit: Yes Status: Chronic Priority: Medium Comment: - Continue Lanuts and SS Lispro - Hyperglycemic today, but will hold off increasing Lantus at this time d/t surgery tomorrow (3) CKD stage 2 due to type 2 diabetes mellitus Current Visit: Yes Status: Acute Priority: Medium Code(s): E11.22 - TYPE 2 DIABETES MELLITUS W DIABETIC CHRONIC KIDNEY DISEASE; N18.2 - CHRONIC KIDNEY DISEASE, STAGE 2 (MILD) SNOMED Code(s): 035838332108 Comment: - Creatinine appears to be at baseline (4) Depression Current Visit: Yes Status: Acute Priority: Medium Code(s): F32.9 - MAJOR DEPRESSIVE DISORDER, SINGLE EPISODE, UNSPECIFIED SNOMED Code(s): 86638066 Comment: - Continue duloxetine and bupropion (5) Hypothyroidism (acquired) Current Visit: No Status: Acute Priority: Medium Code(s): E03.9 - HYPOTHYROIDISM, UNSPECIFIED SNOMED Code(s): 808812413 Comment: - Continue levothyroxine (6) Full code status Current Visit: Yes Status: Acute Priority: High Code(s): Z78.9 - OTHER SPECIFIED HEALTH STATUS SNOMED Code(s): 574085810 (7) DVT prophylaxis Current Visit: No Status: Acute Priority: Medium Code(s): JVA7600 - SNOMED Code(s): 954434465 Comment: - Heparin SQ Status and Disposition: To the OR tomorrow with Dr. Iqbal for left 2nd toe amputation.
[2018-04-30] MEDS ORDERED: Vancomycin Trough Check NOTE FOLLOW UP ONE (13:30)
[2018-05-01] MEDS: ZOSYN 3.375 GM Q8H per EXTENDED INFUSION IVPB SCH ×6 (00:10→15:45)
[2018-05-01] MEDS: Vancomycin(*) 1,000 MG in NS 0.9% 250 ML* 250 ML IVPB SCH ×3 (05:47→22:20)
[2018-05-01] MEDS: Levothyroxine TAB* 100 MCG TAB PO SCH (05:48)
[2018-05-01] MEDS ORDERED: oxyCODONE/Acetamin 5/325 MG* TAB PO PRN (05:56)
[2018-05-01] MEDS ORDERED: PROCHLORPERAZINE INJ 5 MG/ML 2 ML VIAL IV PRN (05:56)
[2018-05-01] MEDS ORDERED: Morphine INJ* 2 MG/ML 1 ML SYRINGE (TWO MG - NEW SYRINGE VERSION) IV PRN (05:56)
[2018-05-01] MEDS ORDERED: Naloxone* 0.4 MG/ML 1 ML VIAL IV PRN (05:56)
[2018-05-01] MEDS ORDERED: fentaNYL* 50 MCG/ML 2 ML VIAL (100 MCG VIAL) IV PRN (05:56)
[2018-05-01] MEDS ORDERED: DiMENhydriNATE IV* 50 MG/ML VIAL IV PUSH PRN (05:56)
[2018-05-01 07:04] LABS: ABS Basophils 0 10^3/ul (0-0.2); ABS Eosinophils 0.2 10^3/ul (0-0.6); ABS Lymphocytes 1.5 10^3/ul (1.0-4.8); ABS Monocytes 0.5 10^3/ul (0-0.8); ABS Neutrophils 4.2 10^3/ul (1.5-7.7); ABS Nucleated RBC 0 10^3/ul; Eosinophil % 2.9 % (0-6); Hematocrit 37 % (42-52); Hemoglobin 13.1 g/dl (14.0-18.0); Lymphocyte % 23.4 % (25-47); Mean Corpuscular HGB Conc 36 g/dl (31-36); Mean Corpuscular Hemoglobin 31 pg (27-31); Mean Corpuscular Volume 87 fL (80-94); Mean Platelet Volume 8.4 um3 (7.4-10.4); Nucleated Red Blood Cells % 0.4; Platelet Count 180 10^3/ul (150-450); Red Blood Count 4.25 10^6/ul (4.00-5.40); Red Cell Distribution Width 14 % (10.5-15); White Blood Count 6.4 10^3/ul (3.5-10.8)
[2018-05-01 07:31] LABS: EGFR Non-African American 58.9 (>60)
[2018-05-01] MEDS: Insulin GLARGINE(*) 1 UNITS UNIT SUBCUT SCH ×2 (07:42→17:13)
[2018-05-01] MEDS: Ketorolac 0.5% OPHTH (NF) 0.5 % 5 ML BTL BOTH EYES SCH ×4 (07:44→22:14)
[2018-05-01] MEDS: Insulin LISPRO* 1 UNITS UNIT SUBCUT SCH ×4 (07:44→20:19)
[2018-05-01] MEDS: BuPROPion XL* 150 MG TAB.XL PO SCH (07:44)
[2018-05-01] MEDS: prednisoLONE 1% OPHTH.SUSP* 5 ML OPHTH.SUSP LEFT EYE SCH ×4 (07:45→22:20)
[2018-05-01] MEDS ORDERED: Famotidine IV* 10 MG/ML 2 ML (20 mg) IV ONE (08:00)
[2018-05-01] MEDS ORDERED: Bupivacaine 0.5% SDV PF* 30ML VIAL ONE (09:43)
[2018-05-01] MEDS ORDERED: Midazolam* 1 MG/ML 2 ML VIAL (2 MG) ONE ×2 (10:00→10:19)
[2018-05-01] MEDS ORDERED: Dexmedetomidine* 200 MCG/2 ML 2 ML VIAL ONE (10:01)
[2018-05-01] MEDS ORDERED: fentaNYL* 50 MCG/ML 2 ML VIAL (100 MCG VIAL) ONE (10:01)
[2018-05-01] MEDS ORDERED: Bupivacaine 0.25% SDV PF* 10 ML VIAL INJ ONE (10:06)
--- NOTE | 2018-05-01 15:51 | OP ---
Operative Report - Blank - Operative Report Date of Operation: 05/01/18 Note: PATIENT: Ajay Palmer DATE OF : 1950 DATE OF SURGERY: 05/01/2018 SURGEON: Edwin Webster MD PIPE STRESS ENGINEER: none ANESTHESIOLOGIST: Dr. Cuenca PREOPERATIVE DIAGNOSIS: Left 2nd toe osteomyelitis POSTOPERATIVE DIAGNOSIS: Left 2nd toe osteomyelitis OPERATION: Left 2nd toe amputation at the level of the PIP joint ANESTHESIA: MAC IMPLANTS: none TOURNIQUET TIME: Less than 30 minutes with an ankle Esmarch tourniquet. SPECIMENS: Toe to pathology. Culture swabs to micro. ESTIMATED BLOOD LOSS: minimal COMPLICATIONS: none STATUS: Stable from the operating room to the recovery room. INDICATIONS FOR PROCEDURE: Ajay has had and ulcer on the tip of his 2nd toe and developed osteomyleitis. Both operative and non operative treatment alternatives were reviewed. Further, the nature and risks of surgery were reviewed in careful detail. Our discussions regarding the risks of surgery included, but were not limited to, wound infection, wound problems, nerve injury, neuroma, RSD, persistent symptoms , blood clot, persistent or worsening infection, failure of the surgery, need for further amputation, and even the remote chance of catastrophic complication , including loss of limb. DESCRIPTION OF PROCEDURE: The patient was seen in the preoperative holding unit and informed written consent was obtained. The appropriate extremity was marked. The patient was then brought to the operating room and carefully positioned on the operating room table. Anesthesia was induced. All bony prominences were padded with great care. A chlorhexidine based pre-scrub was performed followed by a chloraprep prep and drape in standard sterile fashion. A surgical safety pause was then conducted in which we confirmed the appropriate patient, extremity, planned procedure, availability of equipment, indication and administration of antibiotics, and DVT prophylaxis in the form of a compression boot on the non- surgical extremity. I began with application of an ankle Esmarch tourniquet. Care was taken not to compress the infected toe. I then made an incision to remove the distal aspect of the toe. I maintained as much healthy soft-tissue length as was possible. The phalanges were dissected out and the toe was amputated at the level of the PIP joint. The toe was then sent to pathology. Culture swabs were sent to microbiology. The remaining soft tissues were healthy appearing. There was no purulence expressed from more proximal. We then irrigated copiously after removing the ankle Esmarch tourniquet. The skin edges were pink. We closed with 3-0 monocryl and then 3-0 nylon and then placed a sterile dressing. The patient was then awakened from anesthesia and transferred to the recovery room in stable condition. There were no complications. All needle and sponge counts were correct at the end of the case. ATTESTATION: I attest I was present and scrubbed and performed the critical portions of the procedure myself. POSTOPERATIVE PLAN: The patient may be heel weight-bearing in a post-operative shoe and will follow up will be in one week for a wound check, but we will likely leave the sutures in for 3-4 weeks. Antibiotic treatment will be guided by the infectious disease service.
--- NOTE | 2018-05-01 16:19 | PN ---
Subjective Date of Service: 05/01/18 Interval History: Mr. Palmer is feeling well this morning. Had surgery early this morning w/o anesthesia. Denies pain. Has been up ambulating in the room - heel weight bearing. He is hopeful for d/c home tomorrow. Family History: Unchanged from Admission Social History: Unchanged from Admission Past Medical History: Unchanged from Admission Objective Active Medications: Acetaminophen (Tylenol Tab*) 650 mg PO Q4H PRN Al Hydrox/Mg Hydrox/Simethicone (Maalox Plus*) 30 ml PO Q6H PRN Bupropion HCl (Wellbutrin Xl *) 150 mg PO DAILY [facility] Dextrose (D50w Syringe 50 Ml*) 12.5 gm IV PUSH .FOR FS < 60 - SS PRN Vancomycin HCl 1,000 mg/ (Sodium Chloride) 250 mls @ 166.667 mls/hr IVPB Q8H BR[facility]ON; Protocol Piperacillin Sod/Tazobactam (Sod 3.375 gm/ Sodium Chloride) 100 mls @ 25 mls/ hr IVPB Q8H [facility] Insulin Glargine (Lantus(*)) 40 units SUBCUT QPM [facility] Insulin Glargine (Lantus(*)) 35 units SUBCUT Q24H [facility] Insulin Human Lispro (Humalog*) 0 units SUBCUT ACHS [facility]; Protocol Ketorolac Tromethamine (Ketorolac 0.5% Ophth (Nf)) 1 drop BOTH EYES QID [facility] Levothyroxine Sodium (Synthroid Tab*) 200 mcg PO 0600 [facility] Consult (Zosyn Per Pharmacy*) 1 note FOLLOW UP .ZOSYN PER PHARMACY [facility] Consult (Vancomycin Per Pharmacy*) 1 note FOLLOW UP . PRN Prednisolone Acetate (Pred Forte 1%*) 1 drop LEFT EYE QID [facility] Oxygen Devices in Use Now: None Appearance: Middle-aged male sitting in bed in no acute distress. Eyes: No Scleral Icterus, PERRLA Ears/Nose/Mouth/Throat: NL Teeth, Lips, Gums, Mucous Membranes Moist Neck: NL Appearance and Movements; NL JVP Respiratory: Symmetrical Chest Expansion and Respiratory Effort, Clear to Auscultation Cardiovascular: NL Sounds; No Murmurs; No JVD, RRR, - - +1 pitting edema to RLE Abdominal: NL Sounds; No Tenderness; No Distention, No Hepatosplenomegaly Extremities: No Clubbing, Cyanosis Skin: No Rash or Ulcers, - - Dressing in place to right foot Neurological: Alert and Oriented x 3, - - No sensation below knees bilaterally Lines/Tubes/Other Access: Clean, Dry and Intact Peripheral IV Nutrition: Taking PO's Result Diagrams: 05/01/18 06:47 05/01/18 06:47 Assess/Plan/Problems-Billing Assessment: Mr. Palmer is a 67 year old man with history of poorly controlled diabetes x 20 years and CKD stage 2 presented from the wound clinic with a worsening left 2nd digit ulcer and was found to have osteomyelitis. 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 - Right 2nd toe amputation today - Continue vanco and zosyn (2) DM type 2 (diabetes mellitus, type 2) Current Visit: Yes Status: Chronic Priority: Medium Comment: - Better glucose control today - Continue Lanuts and SS Lispro (3) CKD stage 2 due to type 2 diabetes mellitus Current Visit: Yes Status: Chronic Priority: Medium Code(s): E11.22 - TYPE 2 DIABETES MELLITUS W DIABETIC CHRONIC KIDNEY DISEASE; N18.2 - CHRONIC KIDNEY DISEASE, STAGE 2 (MILD) SNOMED Code(s): 488949707050 Comment: - Creatinine appears to be at baseline (4) Depression Current Visit: Yes Status: Chronic Priority: Medium Code(s): F32.9 - MAJOR DEPRESSIVE DISORDER, SINGLE EPISODE, UNSPECIFIED SNOMED Code(s): 70584551 Comment: - Continue duloxetine and bupropion (5) Hypothyroidism (acquired) Current Visit: Yes Status: Chronic Priority: Medium Code(s): E03.9 - HYPOTHYROIDISM, UNSPECIFIED SNOMED Code(s): 636026129 Comment: - Continue levothyroxine (6) Full code status Current Visit: Yes Status: Acute Priority: High Code(s): Z78.9 - OTHER SPECIFIED HEALTH STATUS SNOMED Code(s): 316939222 (7) DVT prophylaxis Current Visit: No Status: Acute Priority: High Code(s): MGY7082 - SNOMED Code(s): 679831880 Comment: - Heparin SQ Status and Disposition: Inpatient for antibiotics. Possible d/c tomorrow pending ID consult and ortho input.
[2018-05-01] MEDS: Heparin VIAL(*) 5000 UNITS/ML VIAL (FIVE THOUSAND) SUBCUT SCH (22:20)
[2018-05-02] MEDS: ZOSYN 3.375 GM Q8H per EXTENDED INFUSION IVPB SCH ×6 (00:08→16:20)
[2018-05-02] MEDS: Acetaminophen TAB* 325 MG PO PRN ×2 (00:55→06:33)
[2018-05-02] MEDS: Vancomycin(*) 1,000 MG in NS 0.9% 250 ML* 250 ML IVPB SCH ×3 (05:36→16:20)
[2018-05-02] MEDS: Heparin VIAL(*) 5000 UNITS/ML VIAL (FIVE THOUSAND) SUBCUT SCH ×2 (05:36→16:19)
[2018-05-02] MEDS: Levothyroxine TAB* 100 MCG TAB PO SCH (05:36)
[2018-05-02 06:54] LABS: ABS Basophils 0 10^3/ul (0-0.2); ABS Eosinophils 0.2 10^3/ul (0-0.6); ABS Lymphocytes 1.6 10^3/ul (1.0-4.8); ABS Monocytes 0.6 10^3/ul (0-0.8); ABS Neutrophils 5.3 10^3/ul (1.5-7.7); ABS Nucleated RBC 0 10^3/ul; Eosinophil % 2.3 % (0-6); Hematocrit 38 % (42-52); Hemoglobin 13.1 g/dl (14.0-18.0); Mean Corpuscular HGB Conc 35 g/dl (31-36); Mean Corpuscular Hemoglobin 30 pg (27-31); Mean Corpuscular Volume 87 fL (80-94); Mean Platelet Volume 7.9 um3 (7.4-10.4); Nucleated Red Blood Cells % 0; Platelet Count 181 10^3/ul (150-450); Red Blood Count 4.31 10^6/ul (4.00-5.40); Red Cell Distribution Width 14 % (10.5-15); White Blood Count 7.8 10^3/ul (3.5-10.8)
[2018-05-02 07:11] LABS: EGFR Non-African American 54.3 (>60)
[2018-05-02] MEDS: Insulin LISPRO* 1 UNITS UNIT SUBCUT SCH ×2 (07:47→12:55)
[2018-05-02] MEDS: Ketorolac 0.5% OPHTH (NF) 0.5 % 5 ML BTL BOTH EYES SCH ×2 (08:25→16:19)
[2018-05-02] MEDS: BuPROPion XL* 150 MG TAB.XL PO SCH (08:25)
[2018-05-02] MEDS: prednisoLONE 1% OPHTH.SUSP* 5 ML OPHTH.SUSP LEFT EYE SCH ×2 (08:25→16:19)
[2018-05-02] MEDS: Insulin GLARGINE(*) 1 UNITS UNIT SUBCUT SCH (08:27)
--- NOTE | 2018-05-02 11:44 | PN ---
Progress Note - Progress Note Date of Service: 05/02/18 SOAP: Subjective: POD #1 Left 2nd toe amputation. Doing well. No pain. Denies f/c. Objective: Vitals: Temp Pulse Resp BP Pulse Ox 98.3 F 77 18 140/72 96 05/01/18 22:36 05/02/18 04:24 05/02/18 04:24 05/02/18 04:24 05/02/18 04:24 Gen: A&Ox3, NAD at rest sitting in bed LLE: Dressing C/D/I, +f/e at remaining MTPs, brisk cap refill Assessment: POD #1 Left 2nd toe amputation Plan: Ok for d/c home when cleared by ID and medicine Heel WBAT LLE with cam walker on F/u with Dr. Webster end of next week for wound check
[2018-05-02 16:22] VITALS: BP 160/76
--- NOTE | 2018-05-02 21:53 | CONS ---
CONSULTATION REPORT: DATE OF CONSULT: 05/02/18 REQUESTING PROVIDER: Olinda Lynne NP CONSULTING SERVICE: Infectious Disease. REASON FOR CONSULT: Foot infection. IMPRESSION: 1. Left 2nd toe cellulitis, chronic osteomyelitis, non-pressure related wound, status post amputation at the PIP joint. Cultures are negative to date, could be polymicrobial. Soft tissue component was improving on Augmentin. 2. Diabetes, insulin-dependent. 3. Normal AN. RECOMMENDATIONS: Augmentin 500 mg by mouth twice a day for 5 more days to cover soft tissue component of the infection. HISTORY OF PRESENT ILLNESS: This is a 67-year-old man with diabetes, uses insulin, has been following at the [facility] for a left toe ulcer, which had been there for a few months. He had taken antibiotics as an outpatient and seen in the [facility], who referred him to the emergency room. He had an MRI that showed osteomyelitis in the distal phalanx of the 2nd toe. He had toe amputation on 05/01/18, which he tolerated well. He is going home today. He is not interested in a long course of antibiotics. PAST MEDICAL HISTORY: 1. Insulin-dependent diabetes. 2. Obesity. 3. Depression. 4. Hypothyroidism. 5. Cellulitis. PAST SURGICAL HISTORY: 1. Achilles tendon repair. 2. Status post cholecystectomy. ALLERGIES: LEVOFLOXACIN caused fever. MEDICATIONS: 1. Tylenol. 2. Bupropion. 3. Heparin subcutaneous injection. 4. Insulin glargine. 5. Levothyroxine. 6. Zosyn 3.375 g every 8 hours by extended infusion. 7. Vancomycin. FAMILY HISTORY: No recurrent infections. SOCIAL HISTORY: He is a past smoker. 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 REVIEW OF SYSTEMS: All negative to a 14-point review of systems except as noted above in the history of present illness. PHYSICAL EXAM: Vital Signs: Temperature of 37, heart rate 70, respiratory rate 16, blood pressure 160/80, oxygen saturation 99% on room air. In general, he is awake, not in distress. Neurologic: He is oriented x3. Follows all commands. HEENT: There is no conjunctival hemorrhage. Oropharynx without lesions. Neck is supple without mass. Heart is regular rate and rhythm without murmurs, rubs, or gallops. Lymph Nodes: There is no palpable inguinal adenopathy. Musculoskeletal: Left foot is wrapped. LABORATORY DATA: White blood cell count 7, hemoglobin 13, platelets 181. Creatinine 1.3. CRP was 24. Please see impressions and recommendations as outlined above. Thanks for asking me to see Mr. Palmer in consultation. [id number]/[facility] #: [id number] MTDTona
[2018-05-03] MEDS ORDERED: Vancomycin Trough Check NOTE FOLLOW UP ONE (05:30)
--- NOTE | 2018-05-03 09:09 | DS ---
CC: Dr. Ajay Taveras * DISCHARGE SUMMARY: DATE OF ADMISSION: 04/28/18 DATE OF DISCHARGE: 05/02/18 PRIMARY CARE PROVIDER: Dr. Ajay Taveras. ATTENDING PHYSICIAN: Dr. Nicolas Middleton * (dictated by Olinda Lynne NP). PRIMARY DIAGNOSES: 1. Osteomyelitis of the left second toe. 2. Diabetes mellitus, type 2. SECONDARY DIAGNOSES: 1. Depression. 2. Hypothyroidism. 3. Chronic kidney disease, stage 3. CONSULTATIONS WHILE IN THE HOSPITAL: 1. Dr. Edwin Webster consulted for left second toe amputation. 2. Dr. Bang Arroyo consulted for antibiotic therapy for osteomyelitis. PROCEDURES WHILE IN THE HOSPITAL: On 05/01/18, the patient underwent a left toe amputation at the level of the PIP joint by Dr. Webster. General anesthesia was not used. Cultures of the toe were sent to micro. STUDIES WHILE IN THE HOSPITAL: 1. Venous Doppler study of the left lower extremity on 04/28/18 reads as no left lower extremity deep vein thrombosis. 2. 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 3. Left lower extremity MRI on 04/28/18 reads as soft tissue wound distal tip of the second toe with surrounding cellulitis difficult to assess for abscess without contrast. 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 It is difficult to assess for possibility of active infection at this level; extensive infiltrative changes in the subcutaneous tissues most pronounced along the dorsum of the foot and around the ankle. Some of this may be passive edema and some may be cellulitis. 4. Ankle brachial indices on 04/29/18 reads as normal ankle brachial indices and triphasic flow at both ankles. DISCHARGE MEDICATIONS: [place] Medications: 1. Augmentin 500 mg p.o. b.i.d. x5 days. Continued Home Medications: 1. Prednisolone 1% one drop 4 times daily. 2. Bupropion XL 150 mg p.o. daily. 3. Vitamin D3 2000 units p.o. daily. 4. Cyclosporine 0.05% one drop both eyes b.i.d. 5. Duloxetine 30 mg p.o. daily. 6. Lantus Solostar 40 mg subcu every night. 7. Lantus Solostar 35 units subcu every morning. 8. Levothyroxine 200 mcg p.o. daily. 9. Pioglitazone 45 mg p.o. daily. 10. Turmeric root extract 1000 mg p.o. daily. 11. Ubidecarenone 30 mg p.o. daily. Changed Home Medications: None. Discontinued Home Medications: None. HISTORY OF PRESENT ILLNESS AND HOSPITAL COURSE: Mr. Palmer is a 67-year-old male with a past medical history of left foot ulcer, type 2 diabetes mellitus, depression, hypothyroidism, and CKD stage 3, who presented to the emergency room on 04/28/18 after an appointment in the wound clinic. Apparently in the wound clinic, there was a concern for osteomyelitis and he was subsequently sent to the emergency room. Please see the history and physical by Dr. Karin Og for a complete summary of the events leading up to this hospitalization, but in short, this has been a chronic ulcer. The patient has had significant peripheral neuropathy for many years and only recently discovered the ulcer on his left second toe. He had no associated symptoms. While in the emergency room, he had imaging as noted above, which was concerning for osteomyelitis. During this hospitalization, the patient noted that he was not interested in pursuing long-term antibiotics and would rather have the toe amputated. Dr. Villarreal saw the patient in consultation on 04/30/18 and at that time, the decision was made to move forward with an amputation. The surgery and postoperative period were uneventful. The patient was seen today on the day of discharge by Dr. Arroyo, who recommended a 5-day course of Augmentin. The patient's blood glucose varied significantly during this hospitalization. He did experience two episodes of hypoglycemia during which he was asymptomatic and was easily corrected. He also experienced multiple episodes of hyperglycemia, which was corrected with lispro subcu. Hemoglobin A1c checked on admission was 8%. Mr. Palmer is stable for discharge to home today. Vital signs are as follows: Temp 98.4, heart rate 74, respiratory rate 16, oxygen saturation 99% on room air , blood pressure 164/88. DISCHARGE PLAN: Mr. Palmer will be discharged to home. Activity will be as tolerated, though he will be heel weightbearing on the left foot per ortho recommendation. Diet will be diabetic with an ADA diet recommended. The patient has been prescribed a 5-day course of Augmentin. He has been instructed to complete this course of antibiotics. The patient will need to follow up with Dr. Villarreal late next week for a recheck of the operative site. He should also follow up with his primary care provider in 1 week. The patient should return to the ER or nearest hospital if he experiences any worsening of symptoms, shortness of breath, lightheadedness, dizziness, chest discomfort, high fevers, chills, night sweats, loss of consciousness, or any other worrisome signs or symptoms. This is a summarized report of a complex medical history and hospital stay. For further details, please see the entire medical record. TIME SPENT: Approximately 60 minutes were spent on this discharge; greater than half of that time spent [id number] with the patient discussing discharge plans and instructions. OLINDA LYNNE NP [id number]/[facility] #: [id number] TETO
== END 2018-05-02 17:00 | disposition home or self-care (01) | DRG 617 ==
LOC: ED 14:03 → MED 18:52
PROVIDERS: ADMIT Internal Medicine; ATTEND Internal Medicine
PROC: 0Y6S0Z1 Detachment at Left 2nd Toe, High, Open Approach (ICD-10-PCS; principal; 2018-05-01 11:15)
DX: E11.69 Type 2 diabetes mellitus with other specified complication (principal); Z68.41 Body mass index [BMI] 40.0-44.9, adult; M86.672 Other chronic osteomyelitis, left ankle and foot; F32.9 Major depressive disorder, single episode, unspecified; E03.9 Hypothyroidism, unspecified; E11.22 Type 2 diabetes mellitus with diabetic chronic kidney disease; N18.3 Chronic kidney disease, stage 3 (moderate); M85.862 Other specified disorders of bone density and structure, left lower leg; Z79.51 Long term (current) use of inhaled steroids; Z79.4 Long term (current) use of insulin; E11.42 Type 2 diabetes mellitus with diabetic polyneuropathy; E11.621 Type 2 diabetes mellitus with foot ulcer; L97.529 Non-pressure chronic ulcer of other part of left foot with unspecified severity; E11.649 Type 2 diabetes mellitus with hypoglycemia without coma; E11.65 Type 2 diabetes mellitus with hyperglycemia; Z90.49 Acquired absence of other specified parts of digestive tract; Z87.891 Personal history of nicotine dependence; Z88.1 Allergy status to other antibiotic agents; E11.51 Type 2 diabetes mellitus with diabetic peripheral angiopathy without gangrene; I87.8 Other specified disorders of veins; Z97.4 Presence of external hearing-aid; Z83.2 Family history of diseases of the blood and blood-forming organs and certain disorders involving the immune mechanism; Z72.89 Other problems related to lifestyle; L03.032 Cellulitis of left toe; E66.9 Obesity, unspecified; E11.610 Type 2 diabetes mellitus with diabetic neuropathic arthropathy
CPT/HCPCS: 36415; 80048; 80053; 80202; 83036; 83605; 83880; 85025; 85652; 86140; 87040; 87070; 87073; 87205; 93005; 93922; 99283; A9270-GY; J1644; J2250; J2543; J3010; J3370; J3490

== ENCOUNTER 2020-09-07 17:17 | Inpatient (IN) ==
[2020-09-07 18:42] LABS: ABS Eosinophils 0.1 10^3/ul (0-0.6); ABS Lymphocytes 0.8 10^3/ul (1.0-4.8); ABS Monocytes 1.1 10^3/ul (0-0.8); ABS Neutrophils 9.5 10^3/ul (1.5-7.7); Eosinophil % 0.6 %; Hematocrit 35 % (42-52); Hemoglobin 12.1 g/dL (14.0-18.0); Lymphocyte % 7.1 %; Mean Corpuscular HGB Conc 35 g/dL (31-36); Mean Corpuscular Hemoglobin 31 pg (27-31); Mean Corpuscular Volume 87 fL (80-94); Mean Platelet Volume 9.2 fL (7.4-10.4); Platelet Count 139 10^3/uL (150-450); Red Blood Count 3.97 10^6 /uL (4.18-5.48); Red Cell Distribution Width 14 % (10-15); White Blood Count 11.6 10^3/uL (3.5-10.8)
[2020-09-07 18:52] LABS: Activated Partial Thrombo Time 30.6 seconds (26.0-38.0); INR 1.18 (0.82-1.09)
[2020-09-07 18:54] LABS: Albumin 3.8 g/dL (3.2-5.2); Albumin/Globulin Ratio 1.4 (1-3); BUN/Creatinine Ratio 12.9 (8-20); C Reactive Protein 248.16 mg/L (<8.01); EGFR African American 53.8 (>60); EGFR Non-African American 44.4 (>60); Globulin 2.8 g/dL (2-4); Potassium 3.8 mmol/L (3.5-5.0); Total Bilirubin 1.3 mg/dL (0.2-1.0); Total Protein 6.6 g/dL (6.4-8.9)
[2020-09-07 20:05] LABS: Erythrocyte Sed Rate 75 mm/Hr (0-19)
[2020-09-07] MEDS ORDERED: Vancomycin 2,000 MG in NS 0.9% 500 ml BAG 500 ML IVPB ONE (22:07)
[2020-09-07] MEDS ORDERED: NS 0.9% ONE (22:13)
[2020-09-07] MEDS ORDERED: Vancomycin per Pharmacy 1 EA NOTE FOLLOW UP SCH (23:45)
[2020-09-07] MEDS ORDERED: Dextrose 50% Syringe 50 ml 25 GM/50 ML SYRINGE IV PUSH PRN (23:54)
[2020-09-07] MEDS ORDERED: Ondansetron 4 mg VIAL 2 MG/ML 2 ml VIAL IV PRN (23:55)
[2020-09-07] MEDS ORDERED: NS 0.9% 1000 ml BAG 1,000 ML IV ONE (23:56)
[2020-09-07] MEDS ORDERED: Piperacillin/Tazobac ADVAN 3.375 GM in NS 0.9% 100 ml BAG 100 ML IV ONE (23:57)
[2020-09-08] MEDS: Insulin GLARGINE 100 un/ml 10 ml VIAL SUBCUT SCH (08:22)
[2020-09-08] MEDS: Enoxaparin 30 MG/0.3 ML SYR SUBCUT SCH (08:24)
[2020-09-08] MEDS: Cholecalciferol (VIT D3) 1,000 unit TAB PO SCH (08:25)
[2020-09-08 08:49] LABS: ABS Eosinophils 0.1 10^3/ul (0-0.6); ABS Lymphocytes 0.9 10^3/ul (1.0-4.8); ABS Monocytes 1.1 10^3/ul (0-0.8); ABS Neutrophils 7.9 10^3/ul (1.5-7.7); Eosinophil % 1.2 %; Hematocrit 35 % (42-52); Mean Corpuscular HGB Conc 35 g/dL (31-36); Mean Corpuscular Hemoglobin 31 pg (27-31); Mean Corpuscular Volume 89 fL (80-94); Platelet Count 140 10^3/uL (150-450); Red Blood Count 3.87 10^6 /uL (4.18-5.48); Red Cell Distribution Width 14 % (10-15); White Blood Count 10.1 10^3/uL (3.5-10.8)
[2020-09-08 09:42] LABS: BUN/Creatinine Ratio 13.8 (8-20); C Reactive Protein 246.52 mg/L (<8.01); Calcium 8.8 mg/dL (8.6-10.3); EGFR African American 58.1 (>60); Potassium 3.9 mmol/L (3.5-5.0)
[2020-09-08] MEDS: cefTRIAXone 2 GM ADDV.VIAL 2 GM in NS 0.9% 100 ml BAG 100 ML IV SCH (10:25)
[2020-09-08] MEDS: Vancomycin 1500 MG IV IVPB SCH ×2 (11:48→20:38)
[2020-09-08] MEDS: DULoxetine DR 30 mg CAP PO SCH (20:38)
[2020-09-08] MEDS ORDERED: Insulin GLARGINE 100 un/ml 10 ml VIAL SUBCUT SCH ×2 (21:00)
[2020-09-09 05:39] LABS: Hematocrit 33 % (42-52); Hemoglobin 11.7 g/dL (14.0-18.0); Mean Corpuscular HGB Conc 35 g/dL (31-36); Mean Corpuscular Hemoglobin 31 pg (27-31); Mean Corpuscular Volume 87 fL (80-94); Mean Platelet Volume 9.1 fL (7.4-10.4); Platelet Count 147 10^3/uL (150-450); Red Blood Count 3.79 10^6 /uL (4.18-5.48); Red Cell Distribution Width 14 % (10-15); White Blood Count 8.6 10^3/uL (3.5-10.8)
[2020-09-09 05:55] LABS: BUN/Creatinine Ratio 15.5 (8-20); Calcium 9.1 mg/dL (8.6-10.3); EGFR African American 59.5 (>60); EGFR Non-African American 49.1 (>60); Potassium 3.9 mmol/L (3.5-5.0)
[2020-09-09 07:06] LABS: C Reactive Protein 218.09 mg/L (<8.01)
[2020-09-09] MEDS: Insulin GLARGINE 100 un/ml 10 ml VIAL SUBCUT SCH (08:01)
[2020-09-09] MEDS: Enoxaparin 30 MG/0.3 ML SYR SUBCUT SCH (08:02)
[2020-09-09] MEDS: Cholecalciferol (VIT D3) 1,000 unit TAB PO SCH (08:02)
[2020-09-09] MEDS: cefTRIAXone 2 GM ADDV.VIAL 2 GM in NS 0.9% 100 ml BAG 100 ML IV SCH (09:55)
[2020-09-09] MEDS ORDERED: Vancomycin Trough Check NOTE FOLLOW UP ONE (10:00)
[2020-09-09] MEDS: Vancomycin 1500 MG IV IVPB SCH ×2 (11:21→22:02)
[2020-09-09 11:32] LABS: Vancomycin Trough 10.4 mcg/mL
[2020-09-09 17:43] LABS: Glucose Confirmatory 426 mg/dL (70-100)
[2020-09-09] MEDS ORDERED: Dextrose 50% Syringe 50 ml 25 GM/50 ML SYRINGE IV PUSH PRN (17:49)
[2020-09-09] MEDS ORDERED: Insulin GLARGINE 100 un/ml 10 ml VIAL SUBCUT SCH (19:00)
[2020-09-09 19:49] LABS: EGFR Non-African American 49.5 (>60)
[2020-09-09] MEDS: DULoxetine DR 30 mg CAP PO SCH (21:01)
[2020-09-10 05:35] LABS: Hematocrit 33 % (42-52); Hemoglobin 11.7 g/dL (14.0-18.0); Mean Corpuscular HGB Conc 35 g/dL (31-36); Mean Corpuscular Hemoglobin 31 pg (27-31); Mean Corpuscular Volume 88 fL (80-94); Mean Platelet Volume 8.4 fL (7.4-10.4); Platelet Count 169 10^3/uL (150-450); Red Cell Distribution Width 14 % (10-15); White Blood Count 8.8 10^3/uL (3.5-10.8)
[2020-09-10 05:46] LABS: BUN/Creatinine Ratio 15.1 (8-20); Calcium 9.4 mg/dL (8.6-10.3); EGFR African American 68.3 (>60); EGFR Non-African American 56.4 (>60); Potassium 3.9 mmol/L (3.5-5.0)
[2020-09-10] MEDS: Cholecalciferol (VIT D3) 1,000 unit TAB PO SCH (08:33)
[2020-09-10] MEDS: Enoxaparin 30 MG/0.3 ML SYR SUBCUT SCH (08:34)
[2020-09-10] MEDS: Insulin GLARGINE 100 un/ml 10 ml VIAL SUBCUT SCH (08:34)
[2020-09-10] MEDS: cefTRIAXone 2 GM ADDV.VIAL 2 GM in NS 0.9% 100 ml BAG 100 ML IV SCH (09:35)
[2020-09-10] MEDS: Vancomycin 1500 MG IV IVPB SCH (11:35)
[2020-09-10 11:36] VITALS: BP 148/78
[2020-09-12] MEDS ORDERED: Vancomycin Trough Check NOTE FOLLOW UP ONE (10:00)
== END 2020-09-10 14:08 | disposition home or self-care (01) | DRG 603 ==
LOC: ED 17:17 → MEDTELE 23:47
PROVIDERS: ADMIT Internal Medicine; ATTEND Internal Medicine

== ENCOUNTER 2020-12-25 08:39 | Inpatient (IN) ==
[2020-12-25 09:20] LABS: ABS Eosinophils 0.1 10^3/ul (0-0.6); ABS Lymphocytes 0.7 10^3/ul (1.0-4.8); ABS Monocytes 0.9 10^3/ul (0-0.8); ABS Neutrophils 6.6 10^3/ul (1.5-7.7); Eosinophil % 1.3 %; Hematocrit 39 % (42-52); Hemoglobin 13.6 g/dL (14.0-18.0); Lymphocyte % 8.6 %; Mean Corpuscular HGB Conc 35 g/dL (31-36); Mean Corpuscular Hemoglobin 31 pg (27-31); Mean Corpuscular Volume 88 fL (80-94); Mean Platelet Volume 8.9 fL (7.4-10.4); Platelet Count 138 10^3/uL (150-450); Red Blood Count 4.42 10^6 /uL (4.18-5.48); Red Cell Distribution Width 14 % (10-15); White Blood Count 8.4 10^3/uL (3.5-10.8)
[2020-12-25 09:39] LABS: Albumin 3.6 g/dL (3.2-5.2); Albumin/Globulin Ratio 1.3 (1-3); Calcium 9.1 mg/dL (8.6-10.3); EGFR African American 86.9 (>60); EGFR Non-African American 71.8 (>60); Globulin 2.7 g/dL (2-4); Potassium 3.7 mmol/L (3.5-5.0); Total Bilirubin 1.2 mg/dL (0.2-1.0); Total Protein 6.3 g/dL (6.4-8.9)
[2020-12-25 10:19] LABS: CRP High Sensitivity 190.52 mg/L (<2.00)
[2020-12-25 10:46] LABS: Erythrocyte Sed Rate 27 mm/Hr (0-19)
[2020-12-25] MEDS ORDERED: HYDROmorphone 1 MG/1 ML SYRINGE IV ONE (11:16)
[2020-12-25] MEDS ORDERED: Dextrose 50% Syringe 50 ml 25 GM/50 ML SYRINGE IV PUSH PRN (13:13)
[2020-12-25] MEDS ORDERED: Polyethylene Glycol 3350 17 GM PACKET PO ONE (13:29)
[2020-12-25] MEDS ORDERED: Polyethylene Glycol 3350 17 GM PACKET PO PRN (13:29)
[2020-12-25] MEDS ORDERED: Heparin 5000 UNITS/ML 1 mL VIAL SUBCUT SCH (14:00)
[2020-12-25] MEDS: HYDROmorphone 0.5 MG/0.5 ML SYRINGE IV PRN ×2 (15:18→20:55)
[2020-12-25] MEDS ORDERED: oxyCODONE/Acetamin 5/325 mg TAB ONE (15:43)
[2020-12-25] MEDS: oxyCODONE/Acetamin 5/325 mg TAB PO PRN ×2 (15:45→20:56)
[2020-12-25] MEDS: Insulin GLARGINE 100 un/ml 10 ml VIAL SUBCUT SCH (21:59)
[2020-12-25] MEDS: DULoxetine DR 30 mg CAP PO SCH (22:00)
[2020-12-25] MEDS: Senna TAB 8.6 mg TAB PO SCH (22:00)
[2020-12-26] MEDS: HYDROmorphone 0.5 MG/0.5 ML SYRINGE IV PRN ×2 (01:22→05:31)
[2020-12-26] MEDS: oxyCODONE/Acetamin 5/325 mg TAB PO PRN (03:23)
[2020-12-26] MEDS ORDERED: Naloxone 0.4 mg VIAL 0.4 mg/ml 1 ml VIAL IV PUSH ONE (07:48)
[2020-12-26] MEDS ORDERED: oxyCODONE/Acetamin 5/325 mg TAB PO PRN (07:59)
[2020-12-26 08:33] LABS: ABS Eosinophils 0.1 10^3/ul (0-0.6); ABS Lymphocytes 0.9 10^3/ul (1.0-4.8); ABS Monocytes 0.7 10^3/ul (0-0.8); ABS Neutrophils 5.2 10^3/ul (1.5-7.7); Eosinophil % 1.9 %; Hematocrit 39 % (42-52); Hemoglobin 13.6 g/dL (14.0-18.0); Lymphocyte % 12.6 %; Mean Corpuscular HGB Conc 35 g/dL (31-36); Mean Corpuscular Hemoglobin 31 pg (27-31); Mean Corpuscular Volume 87 fL (80-94); Mean Platelet Volume 8.3 fL (7.4-10.4); Platelet Count 159 10^3/uL (150-450); Red Blood Count 4.44 10^6 /uL (4.18-5.48); Red Cell Distribution Width 14 % (10-15)
[2020-12-26 08:51] LABS: Calcium 9.1 mg/dL (8.6-10.3); EGFR African American 93.2 (>60); Potassium 3.5 mmol/L (3.5-5.0)
[2020-12-26] MEDS: Insulin GLARGINE 100 un/ml 10 ml VIAL SUBCUT SCH ×2 (09:28→21:34)
[2020-12-26] MEDS: Cholecalciferol (VIT D3) 1,000 unit TAB PO SCH (09:32)
[2020-12-26] MEDS: NS 0.9% 1000 ml BAG 1,000 ML IV SCH ×2 (11:48→23:07)
[2020-12-26] MEDS: Dexamethasone IV 4 MG/ML VIAL 1 ml VIAL IV SLOW PU SCH ×2 (12:42→20:27)
[2020-12-26] MEDS ORDERED: HYDROcodone/ACETAMIN 5/325 mg TAB PO ONE (19:11)
[2020-12-26] MEDS: DULoxetine DR 30 mg CAP PO SCH (20:22)
[2020-12-26] MEDS: Senna TAB 8.6 mg TAB PO SCH (20:22)
[2020-12-27] MEDS: HYDROcodone/ACETAMIN 5/325 mg TAB PO PRN ×2 (00:28→07:42)
[2020-12-27 05:41] LABS: ABS Lymphocytes 0.4 10^3/ul (1.0-4.8); ABS Monocytes 0.2 10^3/ul (0-0.8); ABS Neutrophils 5.5 10^3/ul (1.5-7.7); Eosinophil % 0.1 %; Hematocrit 40 % (42-52); Hemoglobin 14.1 g/dL (14.0-18.0); Mean Corpuscular HGB Conc 35 g/dL (31-36); Mean Corpuscular Hemoglobin 31 pg (27-31); Mean Corpuscular Volume 87 fL (80-94); Mean Platelet Volume 8.4 fL (7.4-10.4); Platelet Count 174 10^3/uL (150-450); Red Blood Count 4.56 10^6 /uL (4.18-5.48); Red Cell Distribution Width 14 % (10-15); White Blood Count 6.1 10^3/uL (3.5-10.8)
[2020-12-27 05:56] LABS: Calcium 9.2 mg/dL (8.6-10.3); EGFR African American 89.9 (>60); EGFR Non-African American 74.3 (>60); Potassium 3.9 mmol/L (3.5-5.0)
[2020-12-27] MEDS: Cholecalciferol (VIT D3) 1,000 unit TAB PO SCH (08:27)
[2020-12-27] MEDS: Dexamethasone IV 4 MG/ML VIAL 1 ml VIAL IV SLOW PU SCH (08:27)
[2020-12-27] MEDS: Insulin GLARGINE 100 un/ml 10 ml VIAL SUBCUT SCH (08:27)
[2020-12-27] MEDS: NS 0.9% 1000 ml BAG 1,000 ML IV SCH (08:36)
[2020-12-27 11:28] VITALS: BP 185/77
== END 2020-12-27 13:35 | disposition short-term general hospital (02) | DRG 948 ==
LOC: ED 08:39 → SSU 08:39
PROVIDERS: ADMIT Hospitalist; ATTEND Hospitalist

== ENCOUNTER 2023-12-12 11:34 | Inpatient (IN) ==
[2023-12-12 12:08] LABS: Hematocrit 38.9 % (38-53); Hemoglobin 13.5 g/dL (13.2-16.3); Mean Corpuscular Hemoglobin 31.1 pg (27-33); Mean Corpuscular Hgb Conc 34.8 g/dL (31-36); Mean Corpuscular Volume 89.4 fL (80-97); Mean Platelet Volume 8.8 fL (7.5-11.2); Platelet Count 141 10^3/uL (150-450); Red Blood Count 4.35 10^6/uL (4.06-5.63); Red Cell Distribution Width 14.6 % (12-17); White Blood Count 9.9 10^3/uL (3.6-10.2)
[2023-12-12 12:21] LABS: INR 1.12 (0.83-1.13)
[2023-12-12 12:37] LABS: Albumin 4.2 g/dL (3.2-5.2); Albumin/Globulin Ratio 1.4 (1-3); Creatinine, Serum 1.68 mg/dL (0.67-1.17); Globulin 3.1 g/dL (2-4); Potassium 4.4 mmol/L (3.5-5.0); Total Bilirubin 1.8 mg/dL (0.2-1.0); Total Protein 7.3 g/dL (6.4-8.9); eGFR CKD-EPI 42.1 (>60)
[2023-12-12 12:40] LABS: ABS Lymphocytes 0.4 10^3/uL (1.0-4.8); ABS Monocytes 0.6 10^3/uL (0.0-1.1); ABS Neutrophils 8.8 10^3/uL (1.5-7.6); ABS Nucleated RBC 0.07 10^3/ul; Eosinophil % 0.2 %; Nucleated Red Blood Cells % 0.7 %/100WBC (0.0-0.8)
[2023-12-12 13:36] LABS: High Sensitivity Troponin 1 Hr 11 pg/mL (<20)
[2023-12-12] MEDS: Furosemide 40 mg/4 ml IV VIAL IV SLOW PU ONE (13:47)
[2023-12-12 15:50] LABS: TSH Ultra Thyroid Stim Horm 0.92 mcIU/mL (0.34-5.60)
[2023-12-12] MEDS ORDERED: Dextrose 50% Syringe 50 ml 25 GM/50 ML SYRINGE IV PUSH PRN (16:39)
[2023-12-12] MEDS ORDERED: Albuterol HFA INHALER 8 gm MDI INH PRN (17:35)
[2023-12-12] MEDS: Enoxaparin 40 MG/0.4 ML SYR SUBCUT SCH (18:07)
[2023-12-13 05:24] LABS: ABS Monocytes 1.1 10^3/uL (0.0-1.1); ABS Neutrophils 9.3 10^3/uL (1.5-7.6); Eosinophil % 0.1 %; Hemoglobin 11.9 g/dL (13.2-16.3); Lymphocyte % 8.3 %; Mean Corpuscular Hemoglobin 30.9 pg (27-33); Mean Corpuscular Hgb Conc 34.1 g/dL (31-36); Mean Corpuscular Volume 90.6 fL (80-97); Mean Platelet Volume 8.9 fL (7.5-11.2); Platelet Count 143 10^3/uL (150-450); Red Blood Count 3.87 10^6/uL (4.06-5.63); Red Cell Distribution Width 14.7 % (12-17); White Blood Count 11.5 10^3/uL (3.6-10.2)
[2023-12-13 06:02] LABS: Calcium 8.4 mg/dL (8.6-10.3); Creatinine, Serum 2.49 mg/dL (0.67-1.17); Magnesium 1.6 mg/dL (1.9-2.7); Potassium 4.3 mmol/L (3.5-5.0); eGFR CKD-EPI 26.3 (>60)
[2023-12-13] MEDS: Magnesium Sulfate 2 gm BAG 2 GM/50 ML BAG IVPB ONE (07:48)
[2023-12-13] MEDS: cefTRIAXone 1 gm/50 mL D5W 1 GM/50 ML BAG IV SCH (08:55)
[2023-12-13 09:43] LABS: Glucose Confirmatory 460 mg/dL (70-100)
[2023-12-13] MEDS ORDERED: Sulfur Hexaflouride MICROSPHR 25 MG VIAL ONE (09:51)
[2023-12-13] MEDS: Azithromycin 500 mg/250 ml NS 500 MG/250 ML BAG IVPB SCH (10:08)
[2023-12-13] MEDS ORDERED: Dextrose 50% Syringe 50 ml 25 GM/50 ML SYRINGE IV PUSH PRN ×2 (10:08→10:15)
[2023-12-13] MEDS: DULoxetine DR 30 mg CAP PO SCH ×2 (10:12→10:15)
[2023-12-13 13:20] LABS: Glucose Confirmatory 478 mg/dL (70-100)
[2023-12-13] MEDS: Insulin GLARGINE 100 un/ml 10 ml VIAL SUBCUT SCH (13:29)
[2023-12-13 13:36] LABS: Calcium 8.5 mg/dL (8.6-10.3); Creatinine, Serum 2.43 mg/dL (0.67-1.17); Potassium 4.3 mmol/L (3.5-5.0)
[2023-12-13 16:50] LABS: Glucose Confirmatory 495 mg/dL (70-100)
[2023-12-14 06:33] LABS: Calcium 8.4 mg/dL (8.6-10.3); Creatinine, Serum 2.22 mg/dL (0.67-1.17); Potassium 4.2 mmol/L (3.5-5.0); eGFR CKD-EPI 30.1 (>60)
[2023-12-14 06:38] LABS: ABS Eosinophils 0.1 10^3/uL (0.0-0.5); ABS Monocytes 0.8 10^3/uL (0.0-1.1); ABS Neutrophils 7.5 10^3/uL (1.5-7.6); ABS Nucleated RBC 0.01 10^3/ul; Eosinophil % 1.2 %; Hematocrit 34.1 % (38-53); Hemoglobin 11.9 g/dL (13.2-16.3); Lymphocyte % 11.1 %; Mean Corpuscular Hemoglobin 31.2 pg (27-33); Mean Corpuscular Hgb Conc 34.8 g/dL (31-36); Mean Corpuscular Volume 89.7 fL (80-97); Mean Platelet Volume 9.1 fL (7.5-11.2); Nucleated Red Blood Cells % 0.1 %/100WBC (0.0-0.8); Platelet Count 158 10^3/uL (150-450); Red Cell Distribution Width 14.4 % (12-17); White Blood Count 9.4 10^3/uL (3.6-10.2)
[2023-12-15 05:55] LABS: Hematocrit 34.2 % (38-53); Mean Corpuscular Hemoglobin 31.1 pg (27-33); Mean Corpuscular Volume 88.7 fL (80-97); Mean Platelet Volume 8.8 fL (7.5-11.2); Platelet Count 183 10^3/uL (150-450); Red Blood Count 3.85 10^6/uL (4.06-5.63); Red Cell Distribution Width 14.7 % (12-17); White Blood Count 8.3 10^3/uL (3.6-10.2)
[2023-12-15 06:11] LABS: Calcium 8.9 mg/dL (8.6-10.3); Creatinine, Serum 1.88 mg/dL (0.67-1.17); Potassium 4.1 mmol/L (3.5-5.0); eGFR CKD-EPI 36.8 (>60)
[2023-12-15 09:44] VITALS: BP 133/79
== END 2023-12-15 10:30 | disposition home or self-care (01) | DRG 193 ==
LOC: ED 11:34 → SUATTDRO 13:53 → EDHOLD 13:53 → ICU 14:38 → MEDTELE 12-13 08:38
PROVIDERS: ADMIT Student in an Organized Health Care Education/Training Program; ATTEND Student in an Organized Health Care Education/Training Program